=== PATIENT | male | born 1995 | race Caucasian/White ===

== ENCOUNTER 2019-08-08 09:00 | Outpatient (NON) | payer OTHER, SELFPAY ==
[2019-08-09 15:09] LABS: SARS-CoV-2 RNA PCR Negative
== END 2019-08-08 09:01 ==
PROVIDERS: PCP Family Medicine; Visit Provider Nurse Practitioner Family
DX: J06.9 Acute upper respiratory infection, unspecified (principal); R05 Cough; R50.9 Fever, unspecified
CPT/HCPCS: 87635; C9803; U0003

== ENCOUNTER 2021-10-24 16:24 | Emergency (ER) | payer BC, SELFPAY ==
--- NOTE | ~2021-10-24 | XR_ITS ---
EXAMINATION: XR knee LT min 4V DATE: 10/24/2021 16:43 INDICATION: Left knee pain TECHNIQUE: Four views of the left knee were obtained. COMPARISON: None. FINDINGS: Alignment is normal. No fracture or osteochondral lesion. Joint spaces are normal with no e rosions. No joint effusion/synovitis. Soft tissues are unremarkable. IMPRESSION: 1. No acute osseous abnormality. Reviewed, dictated and finalized at location B.
[2021-10-24 16:30] VITALS: BP 151/84; PULSE 89; RESP 12; TEMP 37.7; O2SAT 99
--- NOTE | 2021-10-24 17:17 | ED.LOWEXIN ---
HPI - Extremity Injury (Lower) General Chief Complaint: Extremity Injury, Lower Stated Complaint: left knee pain Time Seen by Provider: 10/24/21 17:17 History of Present Illness HPI Narrative: Justice Walker is a 26 yo male with a L medial knee pain after trying to pull boat into dock. Left knee is swollen and he has a hard time extending leg all the way; he has been using ice and a brace when at work Related Data Allergies Allergy/AdvReac Type Severity Reaction Status Date / Time No Known Allergies Allergy Verified 10/24/21 16:44 Review of Systems Review of Systems: CONSTITUTIONAL: Denies fever, chills, sweats. EYES: Denies visual changes, redness, discharge. ENT: Denies rhinorrhea, congestion, sore throat, otalgia. CARDIOVASCULAR: Denies chest pain, palpitations, edema. RESPIRATORY: Denies dyspnea, wheezing, cough GASTROINTESTINAL: Denies abdominal pain, nausea, vomiting, diarrhea. GENITOURINARY: Denies dysuria, hematuria, abnormal discharge SKIN: Denies rash or itching. NEUROLOGIC: Denies numbness, or focal weakness. PSYCHIATRIC: Denies anxiety or depression. Left knee pain after hitting tknee while docking boat PMFSH Past Medical History Medical History BMI 35.0-35.9,adult BMI 36.0-36.9,adult BMI 37.0-37.9, adult Family History Family History Father Hypertension Mother No problems noted. Sibling No problems noted. 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 There is no relevant family history pertinent to the presenting complaint. Exam Narrative: GENERAL: This is a well-nourished, well-developed patient, in mild distress. HEAD: normocephalic, atraumatic. EYES: PERRL. Sclera clear/white. Vision is grossly intact. EARS: External ears normal, auditory canals clear and without drainage, TMs normal without perforation. Hearing grossly intact. NOSE: External nose normal without nasal discharge, nares without redness, no rhinorrhea. THROAT: Mucous membranes moist, posterior pharynx NECK: Neck supple, non-tender CARDIOVASCULAR: Regular rate and rhythm without murmurs, gallops, or rubs. RESPIRATORY: Clear to auscultation. Breath sounds equal bilaterally. No wheezes, rales, or rhonchi. GASTROINTESTINAL: Abdomen soft, non-tender, SKIN: warm, intact with no suspicious lesions or rash, good texture and turgor. NEURO: awake, alert, and oriented to person, place and time. There were no obvious focal neurologic abnormalities. Steady gait EXTREMITIES: Normal range of motion on R. L he can extend to about 140 degrees without pain and he feels like it is stiff he is able to flex all the way to the his normal flexed position, no pain elicited on palpation no obvious effusion BACK: Nontender without deformity Course Course Emergency Course: Patient comes after having left knee pain after hitting knee with boat as are docking Xray shows no acute osseous abnormality, no fracture or osteochondral lesion, joint spaces are normal with no erosion no effusion Placed in Marty wrap, ibuprofen for pain-continue to use brace at work and if needed start to feel better in the next few days he should follow-up with orthopedics, referral provided Level of Care: Express Care Visit Vital Signs Vital signs: Vital Signs Temperature 99.8 F H 10/24/21 16:30 Pulse Rate 89 10/24/21 16:30 Respiratory Rate 12 10/24/21 16:30 Blood Pressure 151/84 H 10/24/21 16:30 Pulse Oximetry 99 10/24/21 16:30 Oxyg
== END 2021-10-24 17:34 | disposition home or self-care (01) ==
PROVIDERS: Emergency Provider Nurse Practitioner; PCP Family Medicine
DX: S89.92XA Unspecified injury of left lower leg, initial encounter (principal); X50.0XXA Overexertion from strenuous movement or load, initial encounter
CPT/HCPCS: 73564; 99213; G0463

== ENCOUNTER 2023-05-09 08:34 | Outpatient (CLI) | payer OTHER, SELFPAY ==
--- NOTE | ~2023-05-09 | MR_ITS ---
EXAMINATION: MR knee LT wo con DATE: 05/09/2023 09:40 INDICATION: S89.90XA - Unspecified injury of unspecified lower leg, i... TECHNIQUE: Magnetic resonance imaging (MRI) of the left knee was performed without intravenous contra st. Sequences included axial PD-weighted FS FSE, coronal PD-weighted FSE and PD-weighted FS FSE, sagi ttal PD-weighted FSE, and sagittal T2-weighted FS FSE. COMPARISON: X-ray left knee 10/24/2021. FINDINGS: Medial compartment: Meniscus and cartilage intact. Lateral compartment: Pinpoint focus of T2 hyperintensity in the posterior horn, lateral meniscus, overlying a focal near f ull-thickness cartilaginous fissure. Patellofemoral compartment: Cartilage and retinacula intact. Ligaments and tendons: Mild abnormal signal in the mid and distal portions of the ACL. Low signal thickening of the proximal MCL. The PCL, and LCL are intact. Remaining flexor and extensor tendons are intact. Fluid: No significant fluid collection. Osseous/other: Mild cortical depression of the posterior medial tibial plateau, deep to the cartilaginous fissure, w ith mild focal marrow edema. IMPRESSION: Partial ACL tear. Possible focal, partially healed tear of the posterior horn, lateral meniscus. Likely posttraumatic osteochondral lesion in the posteromedial aspect of the lateral tibial plateau. Chronic partial MCL tear. Reviewed, dictated and finalized at location K. CRANE OPERATOR IMPRESSION: Partial ACL tear. Possible focal, partially healed tear of the posterior horn, lateral meniscus. Likely posttraumatic osteochondral lesion in the posteromedial aspect of the la teral tibial plateau. Chronic partial MCL tear.
== END 2023-05-09 08:35 | disposition home or self-care (01) ==
PROVIDERS: PCP Family Medicine; Visit Provider Nurse Practitioner Family
DX: S83.512A Sprain of anterior cruciate ligament of left knee, initial encounter (principal); S83.412A Sprain of medial collateral ligament of left knee, initial encounter; X58.XXXA Exposure to other specified factors, initial encounter
CPT/HCPCS: 73721

== ENCOUNTER 2023-05-19 16:11 | Outpatient (CLI) | payer OTHER, SELFPAY ==
--- NOTE | ~2023-05-19 | XR_ITS ---
XR knee LT 3V DATE: 05/19/2023 16:26 INDICATION: Injury. Left knee pain. TECHNIQUE: [place] and standing AP and lateral views COMPARISON: 05/09/2023 MR left knee 10/24/2021 left knee FINDINGS: No fracture or dislocation or joint effusion. No periosteal reaction or bone destruction. J oint spaces are well preserved. No radiopaque intra-articular loose body or chondrocalcinosis is dete cted. IMPRESSION: No significant abnormality Reviewed, dictated and finalized at location B. ENTICE PATTERN MAKER IMPRESSION: No significant abnormality
== END 2023-05-19 16:12 | disposition home or self-care (01) ==
LOC: ANHIMG 16:12
PROVIDERS: PCP Family Medicine; Visit Provider Nurse Practitioner Family
DX: S89.92XA Unspecified injury of left lower leg, initial encounter (principal); X58.XXXA Exposure to other specified factors, initial encounter
CPT/HCPCS: 73562

== ENCOUNTER 2024-04-16 11:51 | Emergency (ER) | payer OTHER, SELFPAY ==
[2024-04-16 12:10] VITALS: BP 153/86; PULSE 87; RESP 16; TEMP 36.3; O2SAT 100
[2024-04-16 12:25] LABS: EDSTREPNEGPOS1 Positive (Negative)
--- NOTE | 2024-04-16 12:35 | ED.URI ---
HPI - URI/Sore Throat General Chief Complaint: Upper Respiratory Infection Stated Complaint: sore throat Time Seen by Provider: 04/16/24 12:36 History of Present Illness HPI Narrative: 28-year-old male presented for complaint of sore throat for 4 days. Endorses mild nasal congestion and drainage, headache neck stiffness, right lymph node swelling, and subjective fever. Taking DayQuil and NyQuil. Denies shortness of breath, wheezing, nausea, vomiting, diarrhea or lethargy. Related Data Allergies Allergy/AdvReac Type Severity Reaction Status Date / Time No Known Allergies Allergy Verified 04/16/24 12:16 Review of Systems Review of Systems: per HPI [facility] Past Medical History Medical History BMI 35.0-35.9,adult BMI 36.0-36.9,adult BMI 37.0-37.9, adult Family History Family History Father Hypertension Mother No problems noted. Sibling No problems noted. 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 EYES: conjunctivae clear ENT: Mucous membranes moist. TMs pearly agee with normal light reflex and clear effusion bilaterally; no tragal tenderness. Oropharynx erythematous without lesions. Tonsils enlarged 1+ with exudate. No drooling, no hoarseness, no trismus, uvula midline. No tripod positioning, hot potato voice, or soft palate swelling. NECK: Supple. Right anterior cervical lymphadenopathy CHEST: Clear to auscultation, breath sounds equal. No respiratory distress, speaks in full sentences. HEART: Regular rate and rhythm. No murmur heard. SKIN: Warm, dry, no rash. NEURO: Alert and oriented x3. Course Course Emergency Course: Patient is aware of diagnosis, understands and agrees to treatment plan. Anticipatory guidance given. Patient agrees to follow-up as directed and is aware of reasons to seek care at the emergency department. Portions of this record may have been created with voice recognition software Level of Care: Express Care Visit Vital Signs Vital signs: Vital Signs Temperature 97.4 F L 04/16/24 12:10 Pulse Rate 87 04/16/24 12:10 Respiratory Rate 16 04/16/24 12:10 Blood Pressure 153/86 H 04/16/24 12:10 Pulse Oximetry 100 04/16/24 12:10 Temperature 97.4 F L 04/16/24 12:10 Pulse Rate 87 04/16/24 12:10 Respiratory Rate 16 04/16/24 12:10 Blood Pressure 153/86 H 04/16/24 12:10 Pulse Oximetry 100 04/16/24 12:10 MDM - URI/Sore Throat MDM Narrative Medical decision making narrative: POS strep result reviewed with pt. Advise supportive treatments. Patient is appropriate for outpatient treatment and follow-up. Differential Diagnosis Differential diagnosis: Likely upper respiratory infection, viral infection and pharyngitis Lab Data Labs: Lab Results 04/16/24 Range/Units 12:21 POC Grp A Strep Screen Positive (Negative) Discharge Plan Discharge Clinical Impression: Strep pharyngitis Patient Disposition: Home, Self-Care Condition: Stable Instructions: Antibiotic Form, Strep Throat (ED) Additional Instructions: - Take the antibiotic as directed. Fever and sore throat typically resolve within one to three days. Most patients can return to work, after 12 to 24 hours of antibiotic therapy, provided you are fever free and otherwise well. -Eat and drink things that are easy to swallow, like soft foods, cool liquids, tea with honey, or popsicles . -Salt water gargles and/or may use topical anesthetic ( Chloraseptic spray) or lozenges to relieve dryness or throat pain -Alternate Tylenol and ibuprofen as needed for pain and fever as directed. -Frequent hand washing or hand floor manager is one of the best ways to prevent spread of infection. Throw away the toothbrush after 24hours of antibiotic. -Follow up with primary care provider in 2-3 days if condition is not improving -Go to the ER if you have trouble breathing, cannot drink enough fluids, have muffled voice or drooling, difficulty opening your mouth, or severe swelling. Patient Language: Montenegrin Prescriptions: New amoxicillin 500 mg tablet 1,000 mg PO DAILY 10 Days Qty: 20 0RF No Action mupirocin 2 % ointment 1 applic topical BID Qty: 22 0RF dextroamphetamine-amphetamine [Adderall XR] 30 mg capsule,extended release 24hr 30 mg PO QAM Qty: 30 0RF Rx Instructions: f/u every 4 months Follow-up/Referrals: Stan Olvera MD [Primary Care Provider] - Stand Alone Forms: Work/School Release IP Time of Disposition: 12:46
--- OUTSIDE RECORDS SUMMARY | 2024-04-23 10:41 | XMS_ITS | Referral Summary ---
Author Organization [facility] Address [address] [place] [address] Care Team Providers Care Currency Counter Name Role Phone Annette Huffman MD Primary Care Provider [phone] Source Comments [facility],non-owned Affiliates and Associated Physician Practices is amultiple site organization consisting of ambulatory clinics and hospital sitesin [place], [place], [place] and [place]. This disclosure is being madepursuant to the Care Everywhere program and may not contain all information available regarding this patient. Last updated 18.[facility] [employer] Allergies No known active allergies Medications Be aware that medications may not be up to date on this document. Always verify current medications with the patient. No known medications Active Problems No known active problems Social History Tobacco Use Types Packs/Day Years Used Date Smoking Tobacco: Never Assessed Alcohol Use Standard Drinks/Week Comments No 0 (1 standard drink = 0.6 oz pur e alcohol) Sex and Gender Information Value Date Recorded Sex Assigned at Not on file Gender Identity Not on file Sexual Orientation Not on file Plan of Treatment Not on file Care Teams Currency Counter Relationship Specialty Start Date End Date Annette Huffman MD [address] [place] [address] PCP - General Pediatrics 09/25/11
--- OUTSIDE RECORDS SUMMARY | 2024-04-23 10:41 | XMS_ITS | Clinical Summary ---
Author Organization [facility] Address [address] [place] [address] Care Team Providers Care Racebook Writer Name Role Phone Annette Huffman MD Primary Care Provider [phone] Source Comments [facility],non-owned Affiliates and Associated Physician Practices is amultiple site organization consisting of ambulatory clinics and hospital sitesin [place], [place], [place] and [place]. This disclosure is being madepursuant to the Care Everywhere program and may not contain all information available regarding this patient. Last updated 18.[facility] [employer] Allergies No known active allergies Medications Be [...] Orientation Not on file Plan of Treatment Health Maintenance Due Date Last Done Comments HIV SCREENING 2012 HPV VACCINE (1 - Male 3-dose series) 2012 HEPATITIS C SCREENING 09/13/2015 DTAP/TDAP/TD VACCINES (1 - Tdap) 2016 HEPATITIS B VACCINE (1 of 3 - 19+ 3-dose series) 2016 DEPRESSION SCREENING 04/19/2023 COVID-19 VACCINE (1 - 2023-2 5 season) 2023 INFLUENZA VACCINE (#1) 2023 ZOSTER VACCINE (1 of 2) 09/18/2047 HIB VACCINE Aged Out No longer eligi ble based on patient's age to complete this topic MENINGOCOCCAL VACCINE Aged Out No jackson salomón eligible based on patient's age to complete this topic PNEUMOCOCCAL VACCINE Aged Out No long er eligible based on patient's age to complete this topic Care Teams Racebook Writer Relationship Specialty Start Date End Date Annette Huffman MD [address] [place] [address] [address] [place] [address] PCP - General Pediatrics 09/25/11
--- OUTSIDE RECORDS SUMMARY | 2024-04-23 10:41 | XMS_ITS | Encounter Summary ---
Author Organization [facility] Address [address] [place] [address] Care Team Providers Care Animal Eviscerator Name Role Phone Annette Huffman MD Primary Care Provider [phone] Reason for Visit * Reason Comments Injury Foot right , xray done Encounter Details Date Type Department Care Team (Latest Contact Info) Description 11/03/2011 10:50 AM CDT - 11/03/2011 11:59 PM CDT Hospital Encounter [facility] Pediatrics - Orthopedics [address] [place] [address] [place] [address] Luis Emery PA-C [address] [place] [address] Discharge Disposition: Home or Self Care Social History Tobacco Use Types Packs/Day Years Used Date Smoking Tobacco: Never Assessed Alcohol Use Standard Drinks/Week Comments No 0 (1 standard drink = 0.6 oz pur e alcohol) Sex and Gender Information Value Date Recorded Sex Assigned at Not on file Gender Identity Not on file Sexual Orientation Not on file documented as of this encounter Progress Notes * Luis Emery PA-C - 11/03/2011 11:51 AM CDT PEDIATRIC ORTHOPAEDIC CLINIC NOTE NAME: Justice Walker DATE OF SERVICE: 11/03/2011 DATE: 1995 PCP: Annette Huffman HISTORY: Justice Walker is a 16 y.o. 1 m.o. male who presents 5 week(s) status post a right 5th metatarsal fracture. Justice Walker was treated with a kelin boot and has been out of that over the past 2 weeks. He presents for follow up evaluation. He reports that he has been doing well and not having any pain. The patient rates his pain as a 0 out of 10. The patient denies new onset of numbness in his lower extremities. PHYSICAL EXAM: Patient is well-developed, well-nourished and in no acute distress. Examination of the lower extremities shows the skin intact. There is no residual edema, ecchymosis, or angular malalignment noted. He is nontender to palpation today at the 5th metatarsal fracture. ROM of the right lower extremity is normal when compared to the other side. He is able to ambulate with a normal heel to toe gait, without a limp. He can walk up on his toes without limitations. The distal neurovascular examination is intact in the lower extremities. RADIOGRAPHS: AP and lateral xrays of the right foot show further healing at the 5th metatarsal fracture. ASSESSMENT: right 5th metatarsal fracture PLAN: We reassured the family that he has enough healing that he may now gradually resume his regular activities as tolerated. He does not have any contact/strenuous sports activities for a few more months. If he has any difficulties returning to activities, or any pain/problems in 3-4 weeks, we rec ommend they return to clinic. If he is doing well at that point, they do not need to follow up for this injury. The family was understanding of this plan and will follow up PRN. documented in this encounter Procedure Notes * Document, Scanned - 12/17/2011 3:50 PM CDTAssociated Order(s): IMAGING/RADIOLOGY/XRAY RESULTS ORDER documented in this encounter Miscellaneous Notes * Miscellaneous Scans - Document, Scanned - 11/16/2011 9:12 AM CDT documented in this encounter Plan of Treatment Not on file documented as of this encounter Procedures Procedure Name Priority Date/Time Associated Diagnosis Comments IMAGING/RADIOLOGY/X RAY RESULTS ORDER 12/17/2011 3:50 PM CDT documented in this encounter Results * IMAGING/RADIOLOGY/XRAY RESULTS ORDER (12/17/2011 3:50 PM CDT) Anatomical Region Laterality Modality Other Narrative Transcriptions Document, Scanned - 12/17/2011 3:50 PM CDT Scanned Document IMAGING documented in this encounter Visit Diagnoses Diagnosis Closed fracture of metatarsal bone(s) Fracture, cause unspecified(E887) Fracture, cause unspecified documented in this encounter Care Teams Animal Eviscerator Relationship Specialty Start Date End Date Annette Huffman MD [facility] [facility] [address] [place] [address] PCP - General Pediatrics 09/25/11 documented as of this encounter
--- OUTSIDE RECORDS SUMMARY | 2024-04-23 10:41 | XMS_ITS | Patient Health Summary ---
Author Organization [facility] Address [address] [place] [address] Care Team Providers Care Corporate Executive Name Role Phone Annette Huffman MD Primary Care Provider [phone] Note from [facility],non-owned Affiliates and Associated Physician Practices is amultiple site organization consisting of ambulatory clinics and hospital sitesin [place], [place], [place] and [place]. This disclosure is being madepursuant to the Care Everywhere program and may not contain all information available regarding this patient. Last updated 18.[facility] [employer] Allergies No known active allergies Medications Be [...] on file Sexual Orientation Not on file Procedures * IMAGING/RADIOLOGY/XRAY RESULTS ORDER(Performed 12/17/2011) * IMAGING/RADIOLOGY/XRAY RESULTS ORDER(Performed 11/06/2011) Results * IMAGING/RADIOLOGY/XRAY RESULTS ORDER (12/17/2011 3:50 PM CDT) Only the most recent of2 resultswithin the time period is included. Anatomical Region Laterality Modality Other Narrative Transcriptions Document, Scanned - 12/17/2011 3:50 PM CDT Scanned Document IMAGING Care Teams Corporate Executive Relationship Specialty Start Date End Date Annette Huffman MD [facility] [address] [place] [address] PCP - General Pediatrics 09/25/11
--- OUTSIDE RECORDS SUMMARY | 2024-04-23 10:41 | XMS_ITS | Encounter Summary ---
Author Organization [facility] Address [address] [place] [address] Care Team Providers Care Hand Counter Name Role Phone Annette Huffman MD Primary Care Provider [phone] Reason for Visit * Reason Comments Follow-up post fx foot rt Encounter Details Date Type Department Care Team (Latest Contact Info) Description 10/20/2011 10:35 AM CDT - 10/20/2011 11:59 PM CDT Hospital Encounter [facility] Pediatrics - Orthopedics [facility] [place] [address] Luis Emery PA-C [facility] [place] [address] Discharge Disposition: Home or Self Care Social History Tobacco Use Types Packs/Day Years Used Date Smoking Tobacco: Never Assessed Sex and Gender Information Value Date Recorded Sex Assigned at Not on file Gender Identity Not on file Sexual Orientation Not on file documented as of this encounter Discharge Instructions * Patient Instructions* Luis Emery PA-C - 10/20/2011 10:45 AM CDT ORTHOPAEDIC CLINIC DISCHARGE INSTRUCTIONS SHEET Follow Up: Please make a return appointment for 2 week(s) May discontinue the boot and fully weight bear on the right foot. Limit strenuous activity--no running, jumping, playground equipment, physical education activities,sports activities until released. School excuse: 10/20/2011 Tylenol and Ibuprofen (over the counter medication) may be used per instructions. If you have any questions or concerns in the interim, or if you need to schedule surgery for your child, you may contact our orthopedic office at . If you need to make a clinic appointment, please call . documented in this encounter Progress Notes * Luis Emery PA-C - 10/20/2011 10:44 AM CDT PEDIATRIC ORTHOPAEDIC CLINIC NOTE NAME: Justice Walker DATE OF SERVICE: 10/20/2011 DATE: 1995 PCP: Annette Huffman MD HISTORY: Justice Walker is a 16 y.o. 5 m.o. male who presents 3 week(s) status post a right 5th metatarsal fracture. Justice Walker was treated with a kelin boot and presents for follow up evaluation. Hereports that he has been doing well and not having any pain. The patient rates his pain as a 0 out of 10. The patient denies new onset of numbness in his lower extremities. PHYSICAL EXAM: Patient is well-developed, well-nourished and in no acute distress. Examination of the lower extremities out of the boot shows the skin intact. There is no residual edema, ecchymosis, or angular malalignment noted. He is nontender to palpation today at the 5th metatarsal fracture. ROM of the right lower extremity is normal when compared to the other side. The distal neurovascular examination is intact in the lower extremities. RADIOGRAPHS: AP and lateral xrays of the right foot show the 5th metatarsal fracture to be healing. ASSESSMENT: right 5th metatarsal fracture PLAN: We reassured the family that he has enough healing that he may discontinue his boot and resume full weight bearing. Fracture precautions were reviewed today. The patient will stay out of PE/sports until further notice. The patient will follow up in 2 week(s) and get an AP, lateral, and oblique xray of the right foot. They will call in the interim with questions or concerns. documented in this encounter Procedure Notes * Document, Scanned - 11/06/2011 1:28 PM CDTAssociated Order(s): IMAGING/RADIOLOGY/XRAY RESULTS ORDER documented in this encounter Plan of Treatment Not on file documented as of this encounter Procedures Procedure Name Priority Date/Time Associated Diagnosis Comments IMAGING/RADIOLOGY/X RAY RESULTS ORDER 11/06/2011 1:29 PM CDT documented in this encounter Results * IMAGING/RADIOLOGY/XRAY RESULTS ORDER (11/06/2011 1:29 PM CDT) Anatomical Region Laterality Modality Other Narrative Transcriptions Document, Scanned - 11/06/2011 1:28 PM CDT Scanned Document IMAGING documented in this encounter Visit Diagnoses Diagnosis Closed fracture of metatarsal bone(s) Fracture, cause unspecified(E887) Fracture, cause unspecified documented in this encounter Care Teams Hand Counter Relationship Specialty Start Date End Date Annette Huffman MD [address] [place] [address] [address] [place] [address] PCP - General Pediatrics 09/25/11 documented as of this encounter
--- OUTSIDE RECORDS SUMMARY | 2024-04-23 10:41 | XMS_ITS | Encounter Summary ---
Author Organization [facility] Address [address] [place] [address] Care Team Providers Care Grocery Store Courtesy Clerk Name Role Phone Annette Huffman MD Primary Care Provider [phone] Reason for Visit * Reason Comments Injury Foot right foot fx Encounter Details Date Type Department Care Team (Latest Contact Info) Description 09/29/2011 1:13 PM CDT - 09/29/2011 11:59 PM CDT Hospital Encounter [facility] Pediatrics - Orthopedics [facility] [place] [address] Rosina Medina MD Discharge Disposition: Home or Self Care Social History Tobacco Use Types Packs/Day Years Used Date Smoking Tobacco: Never Assessed Sex and Gender Information Value Date Recorded Sex Assigned at Not on file Gender Identity Not on file Sexual Orientation Not on file documented as of this encounter Discharge Instructions * Patient Instructions* Luis Emery PA-C - 09/29/2011 1:43 PM CDT ORTHOPAEDIC CLINIC DISCHARGE INSTRUCTIONS SHEET Follow Up: Please make a return appointment for 2 week(s) Wear boot at all times. May remove for washing/bathing. No weight bearing on the right foot out of the boot. Limit strenuous activity--no running, jumping, playground equipment, physical education activities,sports activities until released. School excuse: 09/29/2011 Tylenol and Ibuprofen (over the counter medication) may be used per instructions. If you have any questions or concerns in the interim, or if you need to schedule surgery for your child, you may contact our orthopedic office at . If you need to make a clinic appointment, please call . documented in this encounter Progress Notes * Luis Emery PA-C - 09/29/2011 1:34 PM CDT PEDIATRIC ORTHOPAEDIC CLINIC NOTE NAME: Justice Walker DATE OF SERVICE: 09/29/2011 DATE: 1995 PCP: Annette Huffman MD HISTORY: Justice Walker is a 16 y.o. 5 m.o. male who presents 1 week(s) status post a right foot injury. He was playing basketball and injured the foot. Justice Walker was treated at an outside hospital with xrays and a kelin boot. He has been partially weight bearing in the boot and using his crutches. He presents for further evaluation. The patient rates his pain as a 0 out of 10. The patient denies new onset of numbness in his lower extremities. PAST MEDICAL HISTORY: No past medical history on file. PAST SURGICAL HISTORY: No past surgical history on file. MEDICATIONS: No current outpatient prescriptions on file. ALLERGIES: Allergies as of 09/29/2011 ??? (No Known Allergies) IMMUNIZATIONS: Immunization status: up to date and documented. SOCIAL HISTORY: Patient lives with his mother only. he does attend school. FAMILY HISTORY: Negative for any genetic conditions affecting children. ROS: A 12 point review of systems was obtained today and is positive for what is stated above. PHYSICAL EXAM: Patient is well-developed, well-nourished and in no acute distress. Breathing is non-labored and there are no audible wheezes. Head and trunk control are appropriate. The patient walkswith a normal heel/toe gait pattern and no evidence of a limp. Examination of the lower extremitiesout of the splint shows the skin to be intact and in good condition. FOOT EXAM: soft tissue swelling and tenderness at the lateral border of the foot, reduced range of motion of the right foot. There is no deformity noted. The remainder of foot and ankle exam is normal. The distal neurovascular examination is intact in the lower extremities. RADIOGRAPHS: AP, lateral, & oblique xrays of the right foot show a 5th metatarsal fracture. ASSESSMENT: right 5th metatarsal fracture PLAN: We recommend the patient continue with his kelin boot today. He may continue to partially weight on the right foot in the boot. Fracture precautions were reviewed today. The patient will stayout of PE/sports until further notice. The patient will follow up in 2 week(s) and get a AP, lateral, and oblique xrays of the right foot. They will call in the interim with questions or concerns. * Yanna Bajwa - 09/29/2011 1:14 PM CDT Pt here for right foot fx. He was playing basketball and landed wrong on his right foot. He was seen at [facility] and had xrays done. Pt is not having pain and does not hurt to weight bear. He is in a kelin boot. This happened a week ago. documented in this encounter Miscellaneous Notes * Miscellaneous Scans - Document, Scanned - 10/14/2011 12:30 PM CDT documented in this encounter Plan of Treatment Not on file documented as of this encounter Visit Diagnoses Diagnosis Closed fracture of metatarsal bone(s) documented in this encounter Care Teams Grocery Store Courtesy Clerk Relationship Specialty Start Date End Date Annette Huffman MD [facility] [address] [place] [address] PCP - General Pediatrics 09/25/11 documented as of this encounter
--- OUTSIDE RECORDS SUMMARY | 2024-04-23 10:42 | XMS_ITS | Clinical Summary ---
Author Organization [facility] Address [address] [place] [address]. [place], [place] [address] [place] [id number] Care Team Providers Care Target Worker Name Role Phone Stan Olvera MD Primary Care Provider [phone] Allergies No known active allergies Medications No known medications Family History Medical History Relation Comments Hypertension Father Relation Status Comments Father Social History Tobacco Use Types Packs/Day Years Used Date Smoking Tobacco: Never Smokeless Tobacco: Current Chew Alcohol Use Standard Drinks/Week Comments Yes 0 (1 standard drink = 0.6 oz pur e alcohol) light Sex and Gender Information Value Date Recorded Sex Assigned at Not on file Legal Sex Male 2:50 PM SENIOR SOFTWARE QA ENGINEER Gender Identity Not on file Sexual Orientation Not on file Last Filed Vital Signs Vital Sign Reading Time Taken Comments Blood Pressure 147/86 03/18/2019 3:06 PM SENIOR SOFTWARE QA ENGINEER Pulse 92 03/18/2019 3:06 PM SENIOR SOFTWARE QA ENGINEER Temperature 36.8 ??C (98.3 ??F) 03/18/2019 3:06 PM CS T Respiratory Rate 20 03/18/2019 3:06 PM SENIOR SOFTWARE QA ENGINEER Oxygen Saturation - - Inhaled Oxygen Concentration - - Weight 127 kg (280 lb) 03/18/2019 3:06 PM SENIOR SOFTWARE QA ENGINEER Height 188 cm (6' 2 ) 03/18/2019 3:06 PM SENIOR SOFTWARE QA ENGINEER Body Mass Index 35.95 03/18/2019 3:06 PM SENIOR SOFTWARE QA ENGINEER Plan of Treatment Health Maintenance Due Date Last Done Comments Annual Physical 2000 HPV Vaccines (1 - Male 3-dos e series) 2012 Hepatitis C 09/18/2015 DTaP, Tdap and Td Vaccines ( 1 - Tdap) 2016 Hepatitis B Vaccines (1 of 3 - 19+ 3-dose series) 2016 COVID-19 Vaccine (2023-2 5 season) 2023 Influenza Adult (#1) 2024 Meningococcal Vaccine Aged Out No jackson salomón eligible based on patient's age to complete this topic Pneumococcal Vaccine: Pediat rics (0 to 5 Years) and At-Risk Patients (6 to 64 Years) Aged Out No longer eligible b ased on patient's age to complete this topic RSV Immunizations Under 20 Months Aged Out No longer eligible based on patient's age to complete this topic Insurance Care Teams Target Worker Relationship Specialty Start Date End Date Stan Olvera MD [address] [address] PCP - General FAMILY PRACTICE 03/18/19
--- OUTSIDE RECORDS SUMMARY | 2024-04-23 10:42 | XMS_ITS | Encounter Summary ---
Author Organization [facility] Address [facility]. [place], [place] [address] [place] [address] Care Team Providers Care Statistical Engineer Name Role Phone Marina Olvera MD Primary Care Provider [phone] Reason for Visit * Reason Comments Leg Injury Encounter Details Date Type Department Care Team (Late st Contact Info) Description 03/18/2019 3:02 PM TRIAL MANAGER - 03/18/2019 4:20 PM TRIAL MANAGER Emergency [facility] Emergency Room [address] [place] [address] Marisol Vaughn, [address] [address] Leg Injury Discharge Disposition: Home or Self Care (Routine Discharge) Social History Tobacco Use Types Packs/Day Years Used Date Smoking Tobacco: Never Smokeless Tobacco: Current Chew Alcohol Use Standard Drinks/Week Comments Yes 0 (1 standard drink = 0.6 oz pur e alcohol) light Sex and Gender Information Value Date Recorded Sex Assigned at Not on file Legal Sex Male 2:50 PM TRIAL MANAGER Gender Identity Not on file Sexual Orientation Not on file documented as of this encounter Last Filed Vital Signs Vital Sign Reading Time Taken Comments Blood Pressure 147/86 03/18/2019 3:06 PM TRIAL MANAGER Pulse 92 03/18/2019 3:06 PM TRIAL MANAGER Temperature 36.8 ??C (98.3 ??F) 03/18/2019 3:06 PM CS T Respiratory Rate 20 03/18/2019 3:06 PM TRIAL MANAGER Oxygen Saturation - - Inhaled Oxygen Concentration - - Weight 127 kg (280 lb) 03/18/2019 3:06 PM TRIAL MANAGER Height 188 cm (6' 2 ) 03/18/2019 3:06 PM TRIAL MANAGER Body Mass Index 35.95 03/18/2019 3:06 PM TRIAL MANAGER documented in this encounter Discharge Instructions * Discharge Instructions* ANNIKA Haney - 03/18/2019 4:12 PM TRIAL MANAGER Thank you for giving us the opportunity to care for you today. If at any point you are becoming more ill, please call your doctor, return here, or go to the ER. You are always welcome back. If you have any questions about this visit, concerns about your symptoms, questions about your medications or other concerns, please give us a call... - SUKUMAR Flores PA-C - Emergency Medicine Provider ADDITIONAL DISCHARGE INSTRUCTIONS: --Please follow all the instructions that we have discussed or are provided here. Take all medications as directed. --While the tests and exam we have performed at Urgent Care did not show anything dangerous or lifethreatening it is important for you to follow up with your doctor for further evaluation of your symptoms. It is also important to return to Urgent Care of the ER if your symptoms become worse or youhave new or further concerns. -- Please mention to your follow-up physician that you were at urgent care and request that they review your labs and/or imaging to ensure all findings are followed up on. --Again, it was a pleasure taking care of you. L MANAGER * Attachments The following attachments cannot be sent through Care Everywhere. * Cellulitis (Skin Infection) Discharge Instructions, Adult (Czech) documented in this encounter Medications at Time of Discharge sulfamethoxazole- trimethoprim (BACTRIM DS) 800-160 MG tablet Take 1 tablet by mouth 2 (two) times daily for 10 days. 20 tablet 03/18/2019 03/28/2019 documented as of this encounter ED Notes * ANNIKA Haney - 03/18/2019 3:09 PM CST [facility] HISTORICAL INFORMATION Primary Care Doctor: MARINA OLVERA MD Patient information was obtained primarily from the patient, nursing notes. History/Exam limitations: None Provider at Bedside Date/Time Event User Comments 03/18/19 4304 Provider at Bedside Assessing Patient MARISOL VAUGHN CHIEF COMPLAINT Leg Injury Chief Complaint Patient presents with ??? Leg Injury HPI Justice Walker is a 23-year-old male who presents due to left upper leg pain for the past 2 days. He notes pain, redness, swelling. He states that it is in a similar location where he injured his leg about 1 month ago when a selina fell and landed on his leg. He notes no new injury. Denies any wound or drainage. Ambulatory to the emergency department. Patient also reports that for the past 2 days he has felt congested, coughing, and chills. He notes2 episodes of vomiting today but has been tolerating p.o. intake. Taking Advil and NyQuil at home. Denies any significant past medical history. PAST MEDICAL HISTORY History reviewed. No pertinent past medical history. Denies HTN, HLD, DM. SURGICAL HISTORY History reviewed. No pertinent surgical history. CURRENT MEDICATIONS No current facility-administered medications for this encounter. Current Outpatient Medications: ??? sulfamethoxazole-trimethoprim (BACTRIM DS) 800-160 MG tablet, Take 1 tablet by mouth 2 (two) times daily for 10 days., Disp: 20 tablet, Rfl: 0 ALLERGIES No Known Allergies FAMILY HISTORY Family History Problem Relation Name Age of Onset ??? Hypertension Father SOCIAL HISTORY Social History Socioeconomic History ??? Marital status: Single Spouse name: Not on file ??? Number of children: Not on file ??? Years of education: Not on file ??? Highest education level: Not on file Occupational History ??? Not on file Social Needs ??? Financial resource strain: Not on file ??? Food insecurity: Worry: Not on file Inability: Not on file ??? Transportation needs: Medical: Not on file Non-medical: Not on file Tobacco Use ??? Smoking status: Never Smoker ??? Smokeless tobacco: Current User Types: Chew Substance and Sexual Activity ??? Alcohol use: Yes Comment: light ??? Drug use: No ??? Sexual activity: Not on file Lifestyle ??? Physical activity: Days per week: Not on file Minutes per session: Not on file ??? Stress: Not on file Relationships ??? Social connections: Talks on phone: Not on file Gets together: Not on file Attends alevism service: Not on file Active member of club or organization: Not on file Attends meetings of clubs or organizations: Not on file Relationship status: Not on file ??? Intimate partner violence: Fear of current or ex partner: Not on file Emotionally abused: Not on file Physically abused: Not on file Forced sexual activity: Not on file Other Topics Concern ??? Not on file Social History Narrative ??? Not on file REVIEW OF SYSTEMS Constitutional: Denies fever, chills, weight loss or weakness. Skin: +See HPI HEENT: Denies sore throat or ear pain. Respiratory: +Cough. Denies shortness of breath. Cardiovascular: Denies chest pain, palpitations or swelling. GI: +Nausea, vomiting x 2. Denies abdominal pain or diarrhea. : Denies dysuria, urinary frequency. Musculoskeletal: Denies back pain. Neurologic: Denies headache, focal weakness or sensory changes. Psychiatric: Denies depression, suicidal ideation or homicidal ideation. See HPI for further details. All systems negative except as marked. Physical Exam VITAL SIGNS: Filed Vitals: 03/18/19 1506 BP: (!) 147/86 Pulse: 92 Resp: 20 Temp: 98.3 ??F (36.8 ??C) TempSrc: Temporal Weight: 127 kg (280 lb) Height: 6' 2 (1.88 m) Constitutional: Well developed, No acute distress, Non-toxic appearance. Integument: Warm, Dry. Medial aspect of left inner thigh with 20cm x 15cm area of erythema and warmth with induration but no fluctuance or wound. HEENT: Normocephalic, Atraumatic, Conjunctiva normal Neck- Normal range of motion, Supple Back- Normal range of motion, No gross abnormality Respiratory: Normal breath sounds, No respiratory distress. No wheezing, rhonchi, or crackles. Cardiovascular: Normal heart rate, Normal rhythm Abdomen: Soft, non-tender to palpation. Musculoskeletal: Bilateral lower extremities good ROM, sensation intact, distal pulses 2+ Neurologic: Alert & oriented x 3, No focal deficits noted. Psychiatric: Affect normal, Judgment normal, Mood normal. EKG (interpreted by ED provider) No results found for this visit on 03/18/19. LABORATORY Labs Reviewed CBC W/DIFF AUTOMATED - Abnormal; Notable for the following components: Result Value WBC 17.9 (*) LYMPHOCYTES 11.6 (*) NEUTROPHILS 76.6 (*) ABS. NEUTROPHILS TOTAL 13.68 (*) All other components within normal limits COMPREHENSIVE METABOLIC PANEL - Abnormal; Notable for the following components: SODIUM 135 (*) CHLORIDE 98 (*) TOTAL PROTEIN 8.9 (*) ANION GAP 15.5 (*) A/G RATIO 0.9 (*) All other components within normal limits RADIOLOGY No orders to display PROCEDURES Procedures MDM Patient with significant area of cellulitis to his inner thigh with no definable abscess collectionwhich would be drainable at this time. His vitals are stable upon arrival however he does have significant leukocytosis. He is otherwise well-appearing and able to tolerate p.o. intake. Discussed with patient options of inpatient treatment for IV antibiotics versus trial outpatient treatment of oral antibiotics. Patient would like to try an outpatient antibiotic course. Area of cellulitis was marked with a purple surgical pen for monitoring. Advised patient if significantly worsening redness, streaking redness or fever of 100.4 Fahrenheit or greater at home that he should return to the emergency department. I have discussed today's findings with the patient and provided information regarding the likely diagnosis. The patient has been given information regarding their treatment, follow up and concerning symptoms for which they should seek urgent or emergent attention. I have expressed the the importance of seeking attention should there be any new, or worsening symptoms or persistence of their condition. The patient is stable at discharge and has verbalized understanding of these instructions. Impression/Disposition SNOMED CT(R) 1. Cellulitis CELLULITIS Disposition: Discharge Medications - No data to display Discharge Medication List as of 03/18/2019 4:13 PM START taking these medications Details sulfamethoxazole-trimethoprim (BACTRIM DS) 800-160 MG tablet Take 1 tablet by mouth 2 (two) times daily for 10 days., Starting 03/18/2019, Until Wed03/28/2019, Eprescribe Class: Eprescribe Pharmacy: [id number] - [id number] (Ph #: [phone]) ANNIKA HANEY PA 03/18/19 1751 Cosigned by Shira Freeman MD at 03/18/2019 6:57 PM TRIAL MANAGER L MANAGER L MANAGER * Roxane Rivas RN - 03/18/2019 3:04 PM CST Pt to triage c/o left leg pain x 2 days. Pt c/o swelling and pain to left thigh. Pt states had injury 1 month ago--fell while pushing a selina and handle jammed into left upper leg. Pt states dx contusion and took a week off work. Pt states woke up starting to have pain. Pt states also c/o cough, n/v, chills/sweats that started when the pain did. L MANAGER documented in this encounter Plan of Treatment Not on file documented as of this encounter Procedures Procedure Name Priority Date/Time Associated Diagnosis Comments COMPREHENSIVE METABOLIC PANEL STAT 03/18/2019 3:47 PM TRIAL MANAGER CBC W/DIFF AUTOMATED STAT 03/18/2019 3:47 PM TRIAL MANAGER documented in this encounter Results * (ABNORMAL) COMPREHENSIVE METABOLIC PANEL (03/18/2019 3:47 PM TRIAL MANAGER) Pathologist [facility] GLUCOSE 90 70 - 99 MG/DL 03/18/2019 4:03 PM TRIAL MANAGER [facility] BUN 15 7 - 18 MG/DL 03/18/2019 4:03 PM TRIAL MANAGER [facility] CREATININE S/P/B 1.01 0.7 - 1.3 MG/DL 03/18/2019 4:03 PM [facility] SODIUM S/P/B 135(L) 136 - 145 MMOL/L 03/18/2019 4:03 PM [facility] POTASSIUM S/P/B 3.6 3.5 - 5.1 MMOL/L 03/18/2019 4:03 PM [facility] CHLORIDE S/P/B 98(L) 100 - 108 MMOL/L 03/18/2019 4:03 PM [facility] CO2 21.5 21 - 32 MMOL/L 03/18/2019 4:03 PM [facility] CALCIUM S/P/B 9.1 8.5 - 10.1 MG/DL 03/18/2019 4:03 PM [facility] BILIRUBIN TOTAL S/P/B 0.9 0.2 - 1.2 MG/DL 03/18/2019 4:03 PM [facility] TOTAL PROTEIN S/P/B 8.9(H) 6.4 - 8.2 G/DL 03/18/2019 4:03 PM [facility] ALBUMIN S/P/B 4.3 3.4 - 5.0 G/DL 03/18/2019 4:03 PM [facility] AST 16 15 - 37 U/L 03/18/2019 4:03 PM [facility] ALT 30 16 - 60 U/L 03/18/2019 4:03 PM [facility] ALKALINE PHOSPHATASE S/P/B 61 50 - 136 U/L 03/18/2019 4:03 PM [facility] ANION GAP 15.5(H) 5 - 15 MMOL/L 03/18/2019 4:03 PM [facility] BUN CREATININE RATIO 14.9 6 - 26 03/18/2019 4:03 PM [facility] A/G RATIO 0.9(L) 1.0 - 2.0 RATIO 03/18/2019 4:03 PM [facility] EGFR NON-AFR. AMER. >90 >90 ML/MIN/1.7 3 M2 03/18/2019 4:03 PM [facility] EGFR AFR. AMER. >90 >90 ML/MIN/1.7 3 M2 03/18/2019 4:03 PM [facility] Comment: NOTE: eGFR is not calculated for patients <18 years of age. This is an estimated GFR (CKD EPI) and should not be used for calculating drug doses. 03/18/2019 3:47 PM TRIAL MANAGER Marisol ROBLERO [facility] Final Resul t [facility] [address] [place] [address], * (ABNORMAL) CBC W/DIFF AUTOMATED (03/18/2019 3:47 PM TRIAL MANAGER) WBC 17.9(H) 4.4 - 11.0 x10'3/uL 03/18/2019 3:57 PM [facility] RBC 5.07 4.50 - 5.90 x10'6/uL 03/18/2019 3:57 PM [facility] HGB 15.3 14.0 - 17.5 G/DL 03/18/2019 3:57 PM [facility] HCT 45.8 41.5 - 50.4 % 03/18/2019 3:57 PM [facility] MCV 90.3 80.0 - 96.0 FL 03/18/2019 3:57 PM [facility] MCH 30.2 26.5 - 31.4 PG 03/18/2019 3:57 PM [facility] MCHC 33.4 31.9 - 34.8 G/DL 03/18/2019 3:57 PM [facility] RDW 12.4 12.3 - 14.3 % 03/18/2019 3:57 PM [facility] PLT 244 151 - 353 x10'3/uL 03/18/2019 3:57 PM [facility] MPV 9.9 9.7 - 11.9 FL 03/18/2019 3:57 PM [facility] RBC MORPHOLOGY NORMAL 03/18/2019 3:57 PM [facility] PLT MORPH. NORMAL 03/18/2019 3:57 PM [facility] WBC MORPHOLOGY NORMAL 03/18/2019 3:57 PM [facility] LYMPHOCYTES % 11.6(L) 15.8 - 45.0 % 03/18/2019 3:57 PM [facility] NEUTROPHILS % 76.6(H) 42.1 - 71.9 % 03/18/2019 3:57 PM [facility] MONOCYTES % 11.0 5.7 - 12.5 % 03/18/2019 3:57 PM [facility] EOSINOPHILS 0.1 0.0 - 5.6 % 03/18/2019 3:57 PM [facility] BASOPHILS 0.3 0.0 - 1.3 % 03/18/2019 3:57 PM [facility] ABS. NEUTROPHILS TOTAL 13.68(H) 1.40 - 6.00 x10'3/uL 03/18/2019 3:57 PM [facility] IMMATURE GRANS % 0.4 0.0 - 0.5 % 03/18/2019 3:57 PM [facility] ABS. LYMPHOCYTES 2.07 0.80 - 4.70 x10'3/uL 03/18/2019 3:57 PM TRIAL MANAGER [facility] 03/18/2019 3:47 PM TRIAL MANAGER us Marisol Vaughn PA LABORATORY Final Resul t [facility] [address] [place] [address], documented in this encounter Visit Diagnoses Diagnosis Cellulitis- Primary Cellulitis and abscess of unspecified site documented in this encounter Care Teams Statistical Engineer Relationship Specialty Start Date End Date Marina Olvera MD [address] [place], [place] [id number] PCP - General FAMILY PRACTICE 03/18/19 documented as of this encounter
--- OUTSIDE RECORDS SUMMARY | 2024-04-23 11:50 | XMS_ITS | Encounter Summary ---
Author Organization [facility] Address [address] [place] [address] Care Team Providers Care Cook Box Filler Name Role Phone Annette Huffman MD Primary Care Provider [phone] Reason for Visit * Reason Comments Follow-up post fx foot rt Encounter Details Date Type Department Care Team (Latest Contact Info) Description 10/20/2011 10:35 AM CDT - 10/20/2011 11:59 PM CDT Hospital Encounter [facility] Pediatrics - Orthopedics [facility] [place] [address] Luis Emery PA-C [facility] [place] [address] Discharge Disposition: Home or Self Care Social [...] unspecified documented in this encounter Care Teams Cook Box Filler Relationship Specialty Start Date End Date Annette Huffman MD [address] [place] [address] [address] [place] [address] PCP - General Pediatrics 09/25/11 documented as of this encounter
--- OUTSIDE RECORDS SUMMARY | 2024-04-23 11:50 | XMS_ITS | Encounter Summary ---
Author Organization [facility] Address [address] [facility] [place] [address] Care Team Providers Care Steam Tunnel Feeder Name Role Phone Annette Huffman MD Primary Care Provider [phone] Reason for Visit * Reason Comments Injury Foot right , xray done Encounter Details Date Type Department Care Team (Latest Contact Info) Description 11/03/2011 10:50 AM CDT - 11/03/2011 11:59 PM CDT Hospital Encounter [facility] Pediatrics - Orthopedics [address] [place] [address] [place] [address] Luis Emery PA-C [address] [place] [address] Discharge Disposition: Home or Self Care Social [...] unspecified documented in this encounter Care Teams Steam Tunnel Feeder Relationship Specialty Start Date End Date Annette Huffman MD [facility] [address] [place] [address] PCP - General Pediatrics 09/25/11 documented as of this encounter
--- OUTSIDE RECORDS SUMMARY | 2024-04-23 11:50 | XMS_ITS | Encounter Summary ---
Author Organization [facility] Address [address] [place] [address] Care Team Providers Care Insulation Foreman Name Role Phone Annette Huffman MD Primary Care Provider [phone] Reason for Visit * Reason Comments Injury Foot right foot fx Encounter Details Date Type Department Care Team (Latest Contact Info) Description 09/29/2011 1:13 PM CDT - 09/29/2011 11:59 PM CDT Hospital Encounter [facility] Pediatrics - Orthopedics [facility] [place] [address] Rosina Medina MD Discharge Disposition: Home or [...] bone(s) documented in this encounter Care Teams Insulation Foreman Relationship Specialty Start Date End Date Annette Huffman MD [facility] [address] [place] [address] PCP - General Pediatrics 09/25/11 documented as of this encounter
--- OUTSIDE RECORDS SUMMARY | 2024-04-23 11:50 | XMS_ITS | Clinical Summary ---
Author Organization [facility] Address [address] [place] [address] Care Team Providers Care Ordnance Keeper Name Role Phone Annette Huffman MD Primary Care Provider [phone] Source Comments [facility],non-owned Affiliates and Associated Physician Practices is amultiple site organization consisting of ambulatory clinics and hospital sitesin [place], [place], [place] and [place]. This disclosure is being madepursuant to the Care Everywhere program and may not contain all information available regarding this patient. Last updated 18.[facility] [employer] Allergies No known active allergies Medications Be [...] age to complete this topic Care Teams Ordnance Keeper Relationship Specialty Start Date End Date Annette Huffman MD [address] [place] [address] [address] [place] [address] PCP - General Pediatrics 09/25/11
--- OUTSIDE RECORDS SUMMARY | 2024-04-23 11:50 | XMS_ITS | Patient Health Summary ---
Author Organization [facility] Address [address] [place] [address] Care Team Providers Care Cpas Name Role Phone Annette Huffman MD Primary Care Provider [phone] Note from [facility],non-owned Affiliates and Associated Physician Practices is amultiple site organization consisting of ambulatory clinics and hospital sitesin [place], [place], [place] and [place]. This disclosure is being madepursuant to the Care Everywhere program and may not contain all information available regarding this patient. Last updated 18.[facility] [employer] Allergies No known active allergies Medications Be [...] PM CDT Scanned Document IMAGING Care Teams Cpas Relationship Specialty Start Date End Date Annette Huffman MD [facility] [address] [place] [address] PCP - General Pediatrics 09/25/11
--- OUTSIDE RECORDS SUMMARY | 2024-04-23 11:50 | XMS_ITS | Referral Summary ---
Author Organization [facility] Address [address] [place] [address] Care Team Providers Care Research Aide Name Role Phone Annette Huffman MD Primary Care Provider [phone] Source Comments [facility],non-owned Affiliates and Associated Physician Practices is amultiple site organization consisting of ambulatory clinics and hospital sitesin [place], [place], [place] and [place]. This disclosure is being madepursuant to the Care Everywhere program and may not contain all information available regarding this patient. Last updated 18.[facility] [employer] Allergies No known active allergies Medications Be [...] of Treatment Not on file Care Teams Research Aide Relationship Specialty Start Date End Date Annette Huffman MD [address] [facility] [address] [place] [address] PCP - General Pediatrics 09/25/11
--- OUTSIDE RECORDS SUMMARY | 2024-04-23 11:51 | XMS_ITS | Encounter Summary ---
Author Organization [facility] Address [facility]. [place], [place] [address] [place] [address] Care Team Providers Care Registered Nurse Ambulatory Name Role Phone Marina Olvera MD Primary Care Provider [phone] Reason for Visit * Reason Comments Leg Injury Encounter Details Date Type Department Care Team (Late st Contact Info) Description 03/18/2019 3:02 PM BACKEND JAVA DEVELOPER - 03/18/2019 4:20 PM BACKEND JAVA DEVELOPER Emergency [facility] Emergency Room [address] [place] [address] Marisol Vaughn, [address] [address] Leg Injury Discharge Disposition: Home or Self Care (Routine Discharge) Social History Tobacco Use Types Packs/Day Years Used Date Smoking Tobacco: Never Smokeless Tobacco: Current Chew Alcohol Use Standard Drinks/Week Comments Yes 0 (1 standard drink = 0.6 oz pur e alcohol) light Sex and Gender Information Value Date Recorded Sex Assigned at Not on file Legal Sex Male 2:50 PM BACKEND JAVA DEVELOPER Gender Identity Not on file Sexual Orientation Not on file documented as of this encounter Last Filed Vital Signs Vital Sign Reading Time Taken Comments Blood Pressure 147/86 03/18/2019 3:06 PM BACKEND JAVA DEVELOPER Pulse 92 03/18/2019 3:06 PM BACKEND JAVA DEVELOPER Temperature 36.8 ??C (98.3 ??F) 03/18/2019 3:06 PM CS T Respiratory Rate 20 03/18/2019 3:06 PM BACKEND JAVA DEVELOPER Oxygen Saturation - - Inhaled Oxygen Concentration - - Weight 127 kg (280 lb) 03/18/2019 3:06 PM BACKEND JAVA DEVELOPER Height 188 cm (6' 2 ) 03/18/2019 3:06 PM BACKEND JAVA DEVELOPER Body Mass Index 35.95 03/18/2019 3:06 PM BACKEND JAVA DEVELOPER documented in this encounter Discharge Instructions * Discharge Instructions* ANNIKA Haney - 03/18/2019 4:12 PM BACKEND JAVA DEVELOPER Thank you for giving us the opportunity [...] was a pleasure taking care of you. END JAVA DEVELOPER * Attachments The following attachments cannot be sent through Care Everywhere. * Cellulitis (Skin Infection) Discharge Instructions, Adult ([place]est[place]) documented in this encounter Medications at Time of Discharge sulfamethoxazole- trimethoprim (BACTRIM DS) 800-160 MG tablet Take 1 tablet by mouth 2 (two) times daily for 10 days. 20 tablet 03/18/2019 03/28/2019 documented as of this encounter ED Notes * ANNIKA Haney - 03/18/2019 3:09 PM CST [facility] HISTORICAL INFORMATION Primary Care Doctor: MARINA OLVERA MD Patient information was obtained primarily from the patient, nursing notes. History/Exam limitations: None Provider at Bedside Date/Time Event User Comments 03/18/19 6259 Provider at Bedside Assessing Patient MARISOL VAUGHN [...] file Gets together: Not on file Attends taoist service: Not on file Active member of [...] 03/18/2019, Until Wed03/28/2019, Eprescribe Class: Eprescribe Pharmacy: [id number] - [id number] (Ph #: [phone]) ANNIKA HANEY PA 03/18/19 1751 Cosigned by Shira Freeman MD at 03/18/2019 6:57 PM BACKEND JAVA DEVELOPER END JAVA DEVELOPER END JAVA DEVELOPER * Roxane Rivas RN - 03/18/2019 3:04 [...] chills/sweats that started when the pain did. END JAVA DEVELOPER documented in this encounter Plan of Treatment Not on file documented as of this encounter Procedures Procedure Name Priority Date/Time Associated Diagnosis Comments COMPREHENSIVE METABOLIC PANEL STAT 03/18/2019 3:47 PM BACKEND JAVA DEVELOPER CBC W/DIFF AUTOMATED STAT 03/18/2019 3:47 PM BACKEND JAVA DEVELOPER documented in this encounter Results * (ABNORMAL) COMPREHENSIVE METABOLIC PANEL (03/18/2019 3:47 PM BACKEND JAVA DEVELOPER) Pathologist [facility] GLUCOSE 90 70 - 99 MG/DL 03/18/2019 4:03 [address] [facility] BUN 15 7 - 18 MG/DL 03/18/2019 4:03 [address] [facility] CREATININE S/P/B 1.01 0.7 - 1.3 MG/DL 03/18/2019 4:03 PM [facility] SODIUM S/P/B 135(L) 136 - 145 MMOL/L 03/18/2019 4:03 PM [facility] POTASSIUM S/P/B 3.6 3.5 - 5.1 MMOL/L 03/18/2019 4:03 PM [facility] CHLORIDE S/P/B 98(L) 100 - 108 MMOL/L 03/18/2019 4:03 PM [facility] CO2 21.5 21 - 32 MMOL/L 03/18/2019 4:03 PM [facility] CALCIUM S/P/B 9.1 8.5 - 10.1 MG/DL 03/18/2019 4:03 PM [facility] BILIRUBIN TOTAL S/P/B 0.9 0.2 - 1.2 MG/DL 03/18/2019 4:03 PM [facility] TOTAL PROTEIN S/P/B 8.9(H) 6.4 - 8.2 G/DL 03/18/2019 4:03 PM [facility] ALBUMIN S/P/B 4.3 3.4 - 5.0 G/DL 03/18/2019 4:03 PM [facility] AST 16 15 - 37 U/L 03/18/2019 4:03 PM [facility] ALT 30 16 - 60 U/L 03/18/2019 4:03 PM [facility] ALKALINE PHOSPHATASE S/P/B 61 50 - 136 U/L 03/18/2019 4:03 PM [facility] ANION GAP 15.5(H) 5 - 15 MMOL/L 03/18/2019 4:03 PM [facility] BUN CREATININE RATIO 14.9 6 - 26 03/18/2019 4:03 PM [facility] A/G RATIO 0.9(L) 1.0 - 2.0 RATIO 03/18/2019 4:03 PM [facility] EGFR NON-AFR. AMER. >90 >90 ML/MIN/1.7 3 M2 03/18/2019 4:03 PM [facility] EGFR AFR. AMER. >90 >90 ML/MIN/1.7 3 M2 03/18/2019 4:03 PM [facility] Comment: NOTE: eGFR is not calculated for patients <18 years of age. This is an estimated GFR (CKD EPI) and should not be used for calculating drug doses. 03/18/2019 3:47 PM BACKEND JAVA DEVELOPER [facility] Final Resul t [facility] [address] [place] [address], * (ABNORMAL) CBC W/DIFF AUTOMATED (03/18/2019 3:47 PM BACKEND JAVA DEVELOPER) WBC 17.9(H) 4.4 - 11.0 x10'3/uL 03/18/2019 3:57 PM [facility] RBC 5.07 4.50 - 5.90 x10'6/uL 03/18/2019 3:57 PM [facility] HGB 15.3 14.0 - 17.5 G/DL 03/18/2019 3:57 PM [facility] HCT 45.8 41.5 - 50.4 % 03/18/2019 3:57 PM [facility] MCV 90.3 80.0 - 96.0 FL 03/18/2019 3:57 PM [facility] MCH 30.2 26.5 - 31.4 PG 03/18/2019 3:57 PM [facility] MCHC 33.4 31.9 - 34.8 G/DL 03/18/2019 3:57 PM [facility] RDW 12.4 12.3 - 14.3 % 03/18/2019 3:57 PM [facility] PLT 244 151 - 353 x10'3/uL 03/18/2019 3:57 PM [facility] MPV 9.9 9.7 - 11.9 FL 03/18/2019 3:57 PM [facility] RBC MORPHOLOGY NORMAL 03/18/2019 3:57 PM [facility] PLT MORPH. NORMAL 03/18/2019 3:57 PM [facility] WBC MORPHOLOGY NORMAL 03/18/2019 3:57 PM [facility] LYMPHOCYTES % 11.6(L) 15.8 - 45.0 % 03/18/2019 3:57 PM [facility] NEUTROPHILS % 76.6(H) 42.1 - 71.9 % 03/18/2019 3:57 PM [facility] MONOCYTES % 11.0 5.7 - 12.5 % 03/18/2019 3:57 PM [facility] EOSINOPHILS 0.1 0.0 - 5.6 % 03/18/2019 3:57 PM [facility] BASOPHILS 0.3 0.0 - 1.3 % 03/18/2019 3:57 PM [facility] ABS. NEUTROPHILS TOTAL 13.68(H) 1.40 - 6.00 x10'3/uL 03/18/2019 3:57 PM [facility] IMMATURE GRANS % 0.4 0.0 - 0.5 % 03/18/2019 3:57 PM [facility] ABS. LYMPHOCYTES 2.07 0.80 - 4.70 x10'3/uL 03/18/2019 3:57 [address]END JAVA DEVELOPER [facility] 03/18/2019 3:47 PM BACKEND JAVA DEVELOPER us Marisol Vaughn PA LABORATORY Final Resul t [facility] [address] [place] [address], documented in this encounter Visit Diagnoses Diagnosis Cellulitis- Primary Cellulitis and abscess of unspecified site documented in this encounter Care Teams Registered Nurse Ambulatory Relationship Specialty Start Date End Date Marina Olvera MD [address] [place], [place] [id number] PCP - General FAMILY PRACTICE 03/18/19 documented as of this encounter
--- OUTSIDE RECORDS SUMMARY | 2024-04-23 11:51 | XMS_ITS | Clinical Summary ---
Author Organization [facility] Address [address] [place] [address]. [place], [place] [address] [place] [id number] Care Team Providers Care Dredge Pumper Name Role Phone Stan Olvera MD Primary Care Provider [phone] Allergies No known active allergies Medications No [...] on file Legal Sex Male 2:50 PM GUIDE DELEGATE Gender Identity Not on file Sexual Orientation Not on file Last Filed Vital Signs Vital Sign Reading Time Taken Comments Blood Pressure 147/86 03/18/2019 3:06 PM GUIDE DELEGATE Pulse 92 03/18/2019 3:06 PM GUIDE DELEGATE Temperature 36.8 ??C (98.3 ??F) 03/18/2019 3:06 PM CS T Respiratory Rate 20 03/18/2019 3:06 PM GUIDE DELEGATE Oxygen Saturation - - Inhaled Oxygen Concentration - - Weight 127 kg (280 lb) 03/18/2019 3:06 PM GUIDE DELEGATE Height 188 cm (6' 2 ) 03/18/2019 3:06 PM GUIDE DELEGATE Body Mass Index 35.95 03/18/2019 3:06 PM GUIDE DELEGATE Plan of Treatment Health Maintenance Due Date [...] to complete this topic Insurance Care Teams Dredge Pumper Relationship Specialty Start Date End Date Stan Olvera MD [address] [address] PCP - General FAMILY PRACTICE 03/18/19
== END 2024-04-16 12:47 | disposition home or self-care (01) ==
PROVIDERS: Emergency Provider Nurse Practitioner Family; PCP Family Medicine
DX: J02.0 Streptococcal pharyngitis (principal)
CPT/HCPCS: 87880; 99213; G0463